=== PATIENT | male | born 1970 | race Caucasian/White ===

== ENCOUNTER 2018-06-28 07:56 | Emergency (ER) | payer SELFPAY ==
[2018-06-28] MEDS ORDERED: methylPREDNISolone Sod Succ/PF 125 MG/2 ML VIAL ONE ×2 (09:07→09:08)
== END 2018-06-28 09:30 | disposition home or self-care (01) ==
LOC: ERS 07:56
DX: L25.5 Unspecified contact dermatitis due to plants, except food (principal)
CPT/HCPCS: 96372; J2930

== ENCOUNTER 2018-11-19 09:26 | Inpatient (IN) | payer SELFPAY ==
[2018-11-19 10:01] LABS: #Basophils 0.1 thou/uL (0.0-0.2); #Eosinphils 0.1 thou/uL (0.0-0.7); #Lymphocytes 3.1 thou/uL (1.20-3.40); #Monocytes 0.8 thou/uL (0.11-0.59); %Basophils 1.1 % (0.0-1.0); %Eosinophils 0.7 % (0.0-10.0); %Monocytes 6.8 % (0.0-10.0); %Neutrophils 63.4 % (42.0-75.0); Hemoglobin 17.2 g/dL (14.0-18.0); Mean Corpuscular HGB CONC 34.7 g/dL (32.0-36.0); Mean Corpuscular Hemoglobin 32.3 pg (27.0-31.0); Mean Corpuscular Volume 93.2 fL (78.0-98.0); Mean Platelet Volume 8.9 fL (7.4-10.4); Platelet Count 152 thou/uL (130-400); Red Blood Cell (RBC) Count 5.32 mill/uL (4.70-6.10)
[2018-11-19] MEDS ORDERED: chlordiazePOXIDE HCl 25 MG CAP ONE (10:16)
--- NOTE | 2018-11-19 10:20 | RAD ---
AP CHEST: Date: 11/19/18 HISTORY: Abdominal pain. No comparison chest exam. FINDINGS: There is a pleural based nodular density in the peripheral left lung base measuring 7 mm. The density would suggest a calcified granuloma. Lung [place] are otherwise clear. Vascular markings normal. Heart size normal. No effusion. IMPRESSION: No acute lung process. Question calcified granuloma in the left lung base peripherally. POS: [facility]
[2018-11-19 10:22] LABS: ALT (SGPT) 165 U/L (8-55); AST (SGOT) 131 U/L (5-34); Albumin 4.4 g/dL (3.5-5.0); Alkaline Phosphatase 75 U/L (40-150); Anion Gap 20 mmol/L (10-20); BUN (Urea Nitrogen) 15 mg/dL (8.9-20.6); Bilirubin, Total 1.3 mg/dL (0.2-1.2); CK (CPK) 89 U/L (30-200); Calc. Creatinine Clearance 0 mL/min (70-130); Carbon Dioxide 25 mmol/L (22-29); Chloride 96 mmol/L (98-107); Estimated GFR-MDRD 90; Glucose 123 mg/dL (70-105); Lipase 190 U/L (8-78); Potassium 3.5 mmol/L (3.5-5.1); Protein, Total 7.4 g/dL (6.0-8.3); Sodium 137 mmol/L (136-145)
[2018-11-19 10:22] LABS: Acetaminophen Less than 6.0 mcg/mL (10.0-30.0); Alcohol 127 mg/dL (Less than 10); Salicylate Less than 8.0 mg/dL (15.0-30.0)
[2018-11-19] MEDS ORDERED: Ketorolac Tromethamine 30 MG/ML VIAL ONE (11:17)
[2018-11-19] MEDS ORDERED: Diazepam 5 MG TAB ONE (11:32)
[2018-11-19] MEDS ORDERED: Folic Acid 1 MG TAB ONE (11:33)
--- NOTE | 2018-11-19 11:54 | CT ---
CT OF THE ABDOMEN AND PELVIS WITH IV CONTRAST INDICATION: Right-sided flank and upper quadrant abdominal pain COMPARISON: None FINDINGS: ABDOMEN: Lung bases: Bibasilar atelectasis Liver: Diffuse fatty liver Gallbladder: Normal appearing. Pancreas: Mild peripancreatic inflammatory stranding but with normal enhancement Adrenal glands: Normal. Spleen: Normal. Kidneys: Normal. Retroperitoneum of the upper abdomen: There are mild vascular calcifications seen involving the visua lized vasculature. Pelvis: Small and large bowel: Normal Bladder: Normal. Rectal and perirectal soft tissues:Normal. Reproductive structures: Normal. Free fluid in pelvis: No free fluid is evident. Lymphadenopathy pelvis: No lymphadenopathy is evident. Osseous structures: Bilateral pars defects at L5 with grade 1 anterolisthesis. There is scattered de generative and osteoarthritic changes. IMPRESSION: 1. Noncomplicated pancreatitis 2. Prominent fatty liver
[2018-11-19] MEDS ORDERED: Multivit, Therapeutic 1 TAB PO SCH (12:00)
[2018-11-19] MEDS ORDERED: Thiamine HCl 200 MG/2 ML VIAL IM SCH (12:00)
[2018-11-19] MEDS ORDERED: ISOVUE-370 76%-LOCM 1 ML ONE (12:46)
[2018-11-19] MEDS ORDERED: Ketorolac Tromethamine 30 MG/ML VIAL IVP PRN (14:57)
[2018-11-19 15:30] VITALS: BMI 28.8
[2018-11-19] MEDS ORDERED: Ondansetron ODT 4 MG TAB PO PRN (15:54)
[2018-11-19] MEDS ORDERED: Sodium Chloride 0.9% 1,000 ML IV SCH (16:00)
[2018-11-19] MEDS: Morphine 2 MG/ML SYRINGE SLOW IVP PRN (16:07)
[2018-11-19] MEDS: Ondansetron PF 4 MG/2 ML Vial IVP PRN (17:01)
[2018-11-19] MEDS ORDERED: HYDROcodone/Acetaminophen 10/325 mg Tablet PO SCH (17:15)
[2018-11-19] MEDS ORDERED: Magnesium 2 GM/50 ML 2 GM in Premix Bag 1 BAG IVPB SCH (17:15)
[2018-11-19] MEDS: Lorazepam 2 MG/ML VIAL SLOW IVP PRN ×2 (17:36→23:11)
--- NOTE | 2018-11-19 19:06 | PDOC.HHP ---
Hospitalist HPI - History of Present Illness n/v and abdominal pain History of Present Illness: Mr. Vences is a 47 year old with a history of hypertension who is noncompliant with medications or physician follow-up who presents with complaints of N/V that started yesterday unable to tolerate any oral intake. He has a history of heavy alcohol use, drinking 1/2 gallon of whiskey a day until 2 days ago when he decided to quit. He has been dry heaving this morning and noted small amount of blood tinged emesis. Reports having black tarry stools for several days. Has not had any lightheadedness or dizziness. Never had a GI bleed in the past, never had an EGD. States he does not see doctors and previously treated all his ailments with alcohol. At this present time his main complaint is epigastric pain that is constant and sharp, 7/10 in severity and suddenly has waves of severe pain that is 10/10 lasting seconds. He states it feels like someone is "cutting me with a terrazzo worker apprentice knife". ED Course: Per patient he states the Toradol given in the ED helped to ease his pain and now has worn off. He had labs done which were notable for bili of 1.3, LFTs slightly elevated. He had an alcohol level of 127. Given Librium 50 mg PO in the ED. Also had a CT abdomen revealing noncomplicated pancreatitis. Hospitalist ROS - Review of Systems Constitutional: reports: chills, sweats (associated with alcohol withdrawal) Eyes: denies: pain, vision change, conjunctivae inflammation, eyelid inflammation, redness, other ENT: denies: ear pain, ear discharge, nose pain, nose discharge, nose congestion , mouth pain, mouth swelling, throat pain, throat swelling, other Respiratory: denies: cough, dry, shortness of breath, hemoptysis, SOB with excertion, pleuritic pain, sputum, wheezing, other Cardiovascular: reports: palpitations (reports an irregular heart beat but has never been seen for this) Gastrointestinal: reports: nausea, vomitting, abdominal pain, melena Genitourinary: reports: other (darkening in his urine). denies: dysuria, frequency, incontinence, hematuria, retention Musculoskeletal: denies: neck pain, shoulder pain, arm pain, back pain, hand pain, leg pain, foot pain, other Skin: denies: rash, lesions, khloe, bruising, other Neurological: denies: weakness, numbness, incoordination, change in speech, confusion, seizures, other - Medication Medications: Active Medications Generic Name Dose Route Start Last Admin Trade Name Freq PRN Reason Stop Dose Admin Hydrocodone Bitart/Acetaminophen 1 tab 11/19/18 17:15 11/19/18 17:35 [place] 10/325 PO 11/19/18 19:15 1 tab NOW ANNALISA Administration Sodium Chloride 1,000 mls @ 150 mls/hr 11/19/18 16:00 11/19/18 16:10 Normal Saline 0.9% IV Not Given .[id number] ANNALISA Magnesium Sulfate 2 gm/ Device 50 mls @ 50 mls/hr 11/19/18 17:15 11/19/18 18: 20 IVPB 11/19/18 19:15 50 mls NOW ANNALISA Administration Lorazepam 1 mg 11/19/18 17:10 11/19/18 17:36 Ativan SLOW IVP 1 mg Q4H PRN Administration Anxiety/Agitation Morphine Sulfate 2 mg 11/19/18 15:42 11/19/18 16:07 Morphine SLOW IVP 2 mg Q4H PRN Administration Severe Pain (7-10) Ondansetron HCl 4 mg 11/19/18 15:54 11/19/18 17:01 Zofran IVP 4 mg Q6H PRN Administration Nausea/Vomiting Hospitalist History - Past Medical History Cardiac: reports: HTN Gastrointestinal: reports: GERD Psych: reports: Addictions (Alcohol Abuse, quit 2 days ago. Was drinking 1/2 gallon of whiskey a day.) - Past Surgical History Past Surgical History: reports: no pertinent history - Family History Family History: reports: no pertinent history - Social History Smoking Status: Never smoker Alcohol: reports: Heavy Drugs: reports: none Living Situation: With Family - Exam General Appearance: NAD (Flushed appearance, in some discomfort) Eye: PERRL, anicteric sclera ENT: normocephalic atraumatic, no oropharyngeal lesions Neck: supple, symmetric Heart: RRR, no murmur, no gallops, no rubs Respiratory: CTAB, no wheezes, no rales, no ronchi, normal chest expansion Gastrointestinal: soft, non-tender, non-distended, normal bowel sounds Extremities: no cyanosis, no clubbing, no edema Skin: normal turgor, no lesions, no rashes Neurological: CN's grossly intact, normal sensation to touch, no weakness Musculoskeletal: normal tone, normal strength, no muscle wasting Psychiatric: normal affect (Patient appears anxious, no tremors) Hospitalist Results - Labs Result Diagrams: 11/19/18 09:52 11/19/18 09:52 Lab results: WBC 11.0 thou/uL (4.8-10.8) H 11/19/18 09:52 Hgb 17.2 g/dL (14.0-18.0) 11/19/18 09:52 Hct 49.6 % (42.0-52.0) 11/19/18 09:52 MCV 93.2 fL (78.0-98.0) 11/19/18 09:52 Plt Count 152 thou/uL (130-400) 11/19/18 09:52 Neutrophils % 63.4 % (42.0-75.0) 11/19/18 09:52 Sodium 137 mmol/L (136-145) 11/19/18 09:52 Potassium 3.5 mmol/L (3.5-5.1) 11/19/18 09:52 Chloride 96 mmol/L (98-107) L 11/19/18 09:52 Carbon Dioxide 25 mmol/L (22-29) 11/19/18 09:52 BUN 15 mg/dL (8.9-20.6) 11/19/18 09:52 Creatinine 0.90 mg/dL (0.7-1.3) 11/19/18 09:52 Glucose 123 mg/dL (70-105) H 11/19/18 09:52 Calcium 11.0 mg/dL (7.8-10.44) H 11/19/18 09:52 Total Bilirubin 1.3 mg/dL (0.2-1.2) H 11/19/18 09:52 AST 131 U/L (5-34) H 11/19/18 09:52 ALT 165 U/L (8-55) H 11/19/18 09:52 Alkaline Phosphatase 75 U/L (40-150) 11/19/18 09:52 Creatine Kinase 89 U/L (30-200) 11/19/18 09:52 Troponin I Less than 0.010 ng/mL (< 0.028) 11/19/18 09:52 Serum Total Protein 7.4 g/dL (6.0-8.3) 11/19/18 09:52 Albumin 4.4 g/dL (3.5-5.0) 11/19/18 09:52 Lipase 190 U/L (8-78) H 11/19/18 09:52 Hospitalist H&P A/P - Problem (1) Pancreatitis Code(s): K85.90 - ACUTE PANCREATITIS WITHOUT NECROSIS OR INFECTION, UNSP Status: Acute Assessment and Plan: NPO and IVF, will give 100 cc/hr. BNP added on, no evidence of HF on cxr, but could have underlying alcohol induced cardiomyopathy. If normal, increase fluids to 150 cc/hr. (2) Epigastric pain Code(s): R10.13 - EPIGASTRIC PAIN Status: Acute Assessment and Plan: Given complaints of melena and blood tinged emesis, will hold toradol and give Morphine. (3) Melena Code(s): K92.1 - MELENA Status: Acute Assessment and Plan: Consultation placed to GI. Discussed with Dr. Figueroa and he agrees with Protonix 40 mg IV BID. No need for octreotide. Feels given normal hgb, likely has a carl villareal tear , rather than varices. (4) Heavy alcohol consumption Code(s): Z78.9 - OTHER SPECIFIED HEALTH STATUS Status: Acute Assessment and Plan: ASE protocol. Ativan PRN. Given 10 mg Diazepam PO in ED as well as Librium. Continue Librium 50 mg PO every 6 hours as needed. (5) History of uncontrolled hypertension Code(s): Z86.79 - PERSONAL HISTORY OF OTHER DISEASES OF THE CIRCULATORY SYSTEM Status: Acute Assessment and Plan: Monitor BP. Start Amlodipine 5 mg PO daily. (6) Palpitations Code(s): R00.2 - PALPITATIONS Status: Acute Assessment and Plan: Telemetry monitoring. Would benefit from Echo, unclear if needed as inpatient at this point. - Plan Plan: Addendum: Mg+ checked and low at 1.1, replacement ordered. Will recheck after and give further replacement. Discussed with Dr. Schroeder who agrees with plan as above.
[2018-11-19 19:37] LABS: Anion Gap 14 mmol/L (10-20); BUN (Urea Nitrogen) 17 mg/dL (8.9-20.6); Calc. Creatinine Clearance 140 mL/min (70-130); Calcium 9.6 mg/dL (7.8-10.44); Carbon Dioxide 27 mmol/L (22-29); Chloride 98 mmol/L (98-107); Estimated GFR-MDRD Greater than 90; Glucose 134 mg/dL (70-105); Potassium 3.3 mmol/L (3.5-5.1); Sodium 136 mmol/L (136-145)
[2018-11-19] MEDS: chlordiazePOXIDE HCl 25 MG CAP PO SCH (19:37)
[2018-11-19] MEDS: HYDROcodone/Acetaminophen 7.5/325 mg Tablet PO SCH (21:42)
[2018-11-19] MEDS: Sodium Chloride 0.9% 1,000 ML IV SCH (21:45)
[2018-11-19] MEDS: Pantoprazole 40 MG VIAL IVP SCH (21:45)
[2018-11-19] MEDS ORDERED: Potassium Chloride 10 MEQ in Premix Bag 1 BAG IVPB SCH (22:00)
[2018-11-20] MEDS: chlordiazePOXIDE HCl 25 MG CAP PO SCH ×5 (00:27→23:42)
--- NOTE | 2018-11-20 01:12 | CON ---
DATE OF CONSULTATION: 11/19/2018 REASON FOR CONSULTATION: Hematemesis. HISTORY OF PRESENT ILLNESS: The patient is a 47-year-old male with past medical history of hypertension, GERD, and alcohol dependence, presenting with complaints of abdominal pain and hematemesis. He states that he was in his usual state of health until yesterday when he began to experience increased hand and leg tremor, they were associated with increased diaphoresis as well as multiple bouts of nausea and vomiting of nonbloody emesis and dry heaves. With increased shakes, he sought to improve his clinical status by drinking approximately a 5th of vodka which did help with his tremors and shakes in addition to his nausea, vomiting, but later on that morning, he had acute onset of midepigastric abdominal pain characterized as a sharp/stabbing type sensation, would radiate to the right upper quadrant and left upper quadrant, was constant, reached a severity of 10/10. This pain was worse with eating or drinking any food stuffs, increased physical activity/movement with no clear alleviating factors. This was also associated with continued nausea and vomiting. However, during the course of his vomiting episodes, he did notice blood-tinged emesis rather than any grossly bloody episodes of hematemesis. With the increased nausea, vomiting, abdominal pain, it prompted him to seek healthcare assistance at [facility], where he was noted to have a fairly elevated lipase in addition to imaging consistent with acute uncomplicated pancreatitis. Currently, he states that he continues to have the abdominal pain, but has had improvement in his nausea and vomiting. He otherwise denies any overt or grossly bloody hematemesis, melena, or hematochezia. REVIEW OF SYSTEMS: A 10-category review of systems was obtained with all responses negative except for the pertinent positives as listed in HPI. PAST MEDICAL HISTORY: As per HPI. PAST SURGICAL HISTORY: None. FAMILY HISTORY: Denies any GI malignancies. SOCIAL HISTORY: Denies any tobacco or illicit drug use. However, he has been drinking a 5th of vodka plus mixed drinks for many years with the patient waking up and fixing himself a drink prior to his making breakfast. OUTPATIENT MEDICATIONS: None. ALLERGIES: NO KNOWN DRUG ALLERGIES. PHYSICAL EXAMINATION: VITAL SIGNS: Temperature 97.1, pulse 95, blood pressure 143/94, respiratory rate 20, saturating 93% on room air. GENERAL: The patient was lying in bed, in only mild distress. Alert and oriented x4. HEENT: Normocephalic, atraumatic. Neck, supple. No JVD or scleral icterus noted. CARDIOVASCULAR: Tachycardic rate, but regular rhythm. No discernible murmurs, gallops, or rubs. RESPIRATORY: Clear to auscultation bilaterally with no discernible wheezes or rales. ABDOMEN: Hypoactive bowel sounds. Soft, nondistended. Tenderness to palpation in the right upper quadrant, midepigastric, and left upper quadrant. EXTREMITIES: No cyanosis, clubbing, or edema. LABORATORY DATA: CBC with a white blood cell count of 11, hemoglobin 17.2, hematocrit 49.6, platelets 152. Chemistry with a sodium of 137, potassium 3.5, chloride 96, CO2 of 25, BUN 15, creatinine 0.9, glucose 123. AST 131, ALT 165, alkaline phosphatase 75, total bilirubin 1.3, albumin 4.4, magnesium 1.1, calcium 11, lipase 190. Alcohol level positive at 127. IMAGING DATA: CT of the abdomen and pelvis was obtained on November 19, 2018, which showed diffusely fatty liver in addition to mild peripancreatic inflammatory stranding, but normal enhancement. There was no evidence of free fluid or lymphadenopathy. ASSESSMENT AND PLAN: The patient is a 47-year-old male with a past medical history of hypertension, gastroesophageal reflux disease, and alcohol dependence, presenting with acute uncomplicated pancreatitis and blood-tinged emesis. Hematemesis: The patient had the acute onset of nausea and vomiting in association with alcohol withdrawal and acute uncomplicated pancreatitis where the patient was vomiting for extended periods of time prior to the appearance of blood-tinged emesis. He denies any episodes of any grossly bloody hematemesis nor has he had any melena or hematochezia. At this time, the most likely reason for his blood-tinged hematemesis would be either esophagitis or possible [place] tear. However, the differential could include gastritis, peptic ulcer disease, variceal bleeding (much less likely given lack of evidence of cirrhosis) and/or gastrointestinal neoplasm. RECOMMENDATIONS: 1. We would continue to trend H and H and transfuse as necessary to maintain an H and H of 7/21. 2. Continue to monitor clinically for signs of active GI bleeding. 3. We would keep the patient n.p.o. tonight in anticipation of EGD tomorrow. 4. We will plan for EGD in the morning with intraluminal evaluation of the upper GI tract. 5. We would avoid any NSAIDs during this hospitalization. Pancreatitis: The patient is presenting with a longstanding history of alcohol dependence and was legally drunk on admission per serologies. With the appearance of what appears to be withdrawal symptoms and tremors, the patient did binge drink approximately 1/5 of vodka, which may have contributed to the onset of midepigastric abdominal pain and with serologies and imaging consistent with acute uncomplicated pancreatitis. At this time, the patient is stable without any evidence of end-organ dysfunction related to his pancreatitis, but his pain is only moderately well controlled based on the current regimen. RECOMMENDATIONS: 1. We would change the patient's pain regimen to include a basal narcotic release in addition to p.r.n. use of morphine. 2. We would continue n.p.o. status given pancreatitis. 3. We would continue IV fluids, but increase to 200 mL/h given that the patient has normal renal function. We would continue to track his chemistries with special attention to BUN, which would indicate response to treatment for pancreatitis. 4. There is no need to trend his lipase as it does not portend worsening or improving of his pancreatitis. We will continue to follow. Please call with any questions. Job ID: [id number]
[2018-11-20] MEDS: Sodium Chloride 0.9% 1,000 ML IV SCH ×5 (03:00→21:44)
[2018-11-20] MEDS: Morphine 2 MG/ML SYRINGE SLOW IVP PRN ×4 (03:34→19:50)
[2018-11-20 05:44] LABS: ALT (SGPT) 97 U/L (8-55); AST (SGOT) 61 U/L (5-34); Albumin 3.5 g/dL (3.5-5.0); Alkaline Phosphatase 62 U/L (40-150); Anion Gap 11 mmol/L (10-20); BUN (Urea Nitrogen) 16 mg/dL (8.9-20.6); Bilirubin, Total 1.7 mg/dL (0.2-1.2); Calc. Creatinine Clearance 159 mL/min (70-130); Calcium 8.8 mg/dL (7.8-10.44); Carbon Dioxide 30 mmol/L (22-29); Chloride 99 mmol/L (98-107); Estimated GFR-MDRD Greater than 90; Globulin 2.7 g/dL (2.4-3.5); Glucose 93 mg/dL (70-105); Potassium 3.6 mmol/L (3.5-5.1); Protein, Total 6.2 g/dL (6.0-8.3); Sodium 136 mmol/L (136-145)
[2018-11-20 05:52] LABS: #Eosinphils 0.2 thou/uL (0.0-0.7); #Lymphocytes 1.4 thou/uL (1.20-3.40); #Monocytes 0.4 thou/uL (0.11-0.59); #Neutrophils 4.6 thou/uL (1.40-6.50); %Basophils 0.6 % (0.0-1.0); %Eosinophils 2.7 % (0.0-10.0); %Lymphocytes 20.4 % (21.0-51.0); %Monocytes 6.5 % (0.0-10.0); %Neutrophils 69.8 % (42.0-75.0); Hemoglobin 15.6 g/dL (14.0-18.0); Mean Corpuscular HGB CONC 34.8 g/dL (32.0-36.0); Mean Corpuscular Hemoglobin 32.7 pg (27.0-31.0); Mean Platelet Volume 9.5 fL (7.4-10.4); Platelet Count 96 thou/uL (130-400); Platelet Morphology Comment Appears Decreased; Red Blood Cell (RBC) Count 4.77 mill/uL (4.70-6.10); White Blood Cell (WBC) Count 6.6 thou/uL (4.8-10.8)
[2018-11-20] MEDS: HYDROcodone/Acetaminophen 7.5/325 mg Tablet PO SCH ×3 (06:00→21:42)
[2018-11-20] MEDS: Pantoprazole 40 MG VIAL IVP SCH ×2 (08:35→19:55)
[2018-11-20] MEDS ORDERED: PROPOFOL 200 MG/20 ML VIAL ONE (08:45)
[2018-11-20] MEDS ORDERED: Lidocaine 1% PF 5 ML VIAL ONE (08:45)
[2018-11-20] MEDS ORDERED: Fentanyl 100 MCG/2 ML VIAL ONE (12:30)
--- NOTE | 2018-11-20 14:43 | PRG ---
DATE OF SERVICE: 11/20/2018 SUBJECTIVE: The patient is seen and examined at the bedside. He just came back from his EGD, done by Dr. Figueroa. He still complains about abdominal pain. OBJECTIVE: VITAL SIGNS: Blood pressure is 161/100, pulse is 90, temperature is 98.2, respirations 16, O2 saturation is 93% on room air. HEENT: His head is atraumatic and normocephalic. Eyes are PERRLA. Sclerae are nonicteric. Conjunctivae, pinkish. Oral mucosa is somewhat dry. NECK: Supple. LUNGS: Clear. HEART: S1 and S2 normal. No S3. No S4. ABDOMEN: Somewhat distended. Tender to palpation, especially in the midpart of the abdomen and epigastric area. There is some guarding. Bowel sounds sluggish. EXTREMITIES: No clubbing, cyanosis, or edema. NEUROLOGICAL: He follows my commands. He moves his all 4 extremities. There are no any motor or sensory deficits. LABORATORY DATA: White count of 6.6, hemoglobin 15.6, hematocrit 44.8, platelet count is 96,000. Sodium of 136, potassium 3.6, chloride 99, CO2 of 30, BUN 16, creatinine 0.77, glucose 93, calcium 8.8. Total bilirubin 1.7, AST 61, ALT 97, alkaline phosphatase 62, lipase 881. IMPRESSION: 1. Acute pancreatitis secondary to alcohol intake. 2. Melena, status post EGD, which showed some irritation of the upper part of the stomach, which could be related to his vomiting. 3. Uncontrolled hypertension. 4. Alcoholism. 5. Thrombocytopenia. PLAN: We are going to continue his PPI 40 mg of Protonix IV push every 12 hours. We will continue IV fluids at 200 mL/h. We will use p.r.n. morphine and hydrocodone for the abdominal pain control. Also we will continue Librium 50 mg q.6 hours as scheduled and lorazepam (Ativan) p.r.n. 1 mg slow IV push every 4 hours p.r.n. as needed. The patient's alcohol level was at 127 yesterday, so he is trying to recover from his alcohol intoxication. We will continue close followup with him, and we will recheck his numbers blood work tomorrow morning. Job ID: [id number]
--- NOTE | 2018-11-20 20:12 | OP ---
DATE OF PROCEDURE: 11/20/2018 PROCEDURE PERFORMED: Esophagogastroduodenoscopy (diagnostic). INDICATIONS FOR PROCEDURE: Hematemesis, midepigastric abdominal pain. DESCRIPTION OF PROCEDURE: After the risks and benefits of the procedure were explained to the patient including risks of bleeding, infection, perforation, reactions to anesthesia, aspiration, and/or pain, informed consent was obtained. The patient was then taken to the endoscopy suite, where deep sedation was administered via propofol and anesthesia support. Once adequate sedation was achieved, the standard gastroscope was introduced into the mouth with intubation of the esophagus, stomach, and the proximal small intestines with the findings listed below. The patient tolerated the procedure well, but did exhibit some oxygen desaturation during the procedure that required the placement of a nasal trumpet, that he responded well with. Upon completion of the procedure, all equipment was removed from the patient, and he was transferred to PACU in satisfactory condition. FINDINGS: Esophagus: Normal-appearing mucosa was seen in the proximal and mid esophagus; however, one tongue of salmon-colored mucosa was seen extending proximally from the GE junction around 2 cm in length. It could not be adequately visualized due to the patient's oxygen desaturation. Views of the distal esophagus did not reveal any esophageal varices. There was no evidence of erosions, ulcerations, mass lesions, or active/recent bleeding. Stomach: Mild mucosal erythema in a mosaic-type pattern was seen in the proximal stomach including the cardia and the fundus with areas of mild submucosal hemorrhage seen within the fundus consistent with recent retching. Otherwise, normal-appearing mucosa was seen in the distal gastric body, greater curvature, antrum, and incisura. There was no evidence of erosions, ulcerations, mass lesions, or active/recent bleeding. Duodenum: Normal-appearing mucosa was seen in both the duodenal bulb and second portion of the duodenum. There was no evidence of erosions, ulcerations, mass lesions, or active/recent bleeding. IMPRESSION: 1. [place]-colored mucosa in the distal esophagus concerning for [place] esophagus, but not biopsied due to oxygen desaturation during this exam. 2. Mild nonspecific gastropathy consistent with recent vomiting. 3. No etiology for the patient's hematemesis was seen during this examination. RECOMMENDATIONS: 1. We would continue to trend his H and H and transfuse as necessary to maintain an H and H of 7/21. 2. Continue to monitor clinically for signs of active GI bleeding. 3. Pain control per primary team. 4. We will continue n.p.o. status given continued pain today with probable starting of a clear liquid diet tomorrow. 5. We would continue IV fluids at roughly 100 mL/hour. 6. We will continue with aggressive antiemetics as this is the most likely reason for his recent blood tinged emesis. We will continue to follow. Please call with any questions. Job ID: [id number]
[2018-11-21] MEDS: Morphine 2 MG/ML SYRINGE SLOW IVP PRN ×2 (02:32→20:02)
[2018-11-21] MEDS: Sodium Chloride 0.9% 1,000 ML IV SCH ×6 (02:36→21:10)
[2018-11-21] MEDS: chlordiazePOXIDE HCl 25 MG CAP PO SCH ×4 (05:50→23:38)
[2018-11-21] MEDS: HYDROcodone/Acetaminophen 7.5/325 mg Tablet PO SCH ×3 (05:50→21:09)
[2018-11-21 09:07] LABS: #Eosinphils 0.3 thou/uL (0.0-0.7); #Lymphocytes 1.7 thou/uL (1.20-3.40); #Monocytes 0.5 thou/uL (0.11-0.59); #Neutrophils 3.4 thou/uL (1.40-6.50); %Basophils 0.3 % (0.0-1.0); %Eosinophils 5.3 % (0.0-10.0); %Lymphocytes 28.9 % (21.0-51.0); %Monocytes 7.9 % (0.0-10.0); %Neutrophils 57.6 % (42.0-75.0); Hemoglobin 14.4 g/dL (14.0-18.0); Mean Corpuscular HGB CONC 34.1 g/dL (32.0-36.0); Mean Corpuscular Hemoglobin 32.4 pg (27.0-31.0); Mean Platelet Volume 9.4 fL (7.4-10.4); Platelet Count 93 thou/uL (130-400); RBC Distribution Width 11.8 % (11.5-14.5); Red Blood Cell (RBC) Count 4.44 mill/uL (4.70-6.10)
[2018-11-21 09:22] LABS: ALT (SGPT) 82 U/L (8-55); AST (SGOT) 66 U/L (5-34); Albumin 3.3 g/dL (3.5-5.0); Alkaline Phosphatase 65 U/L (40-150); Anion Gap 11 mmol/L (10-20); BUN (Urea Nitrogen) 7 mg/dL (8.9-20.6); Bilirubin, Total 1.8 mg/dL (0.2-1.2); Calc. Creatinine Clearance 178 mL/min (70-130); Calcium 8.1 mg/dL (7.8-10.44); Carbon Dioxide 24 mmol/L (22-29); Chloride 104 mmol/L (98-107); Estimated GFR-MDRD Greater than 90; Globulin 2.5 g/dL (2.4-3.5); Glucose 103 mg/dL (70-105); Potassium 3.2 mmol/L (3.5-5.1); Protein, Total 5.8 g/dL (6.0-8.3); Sodium 136 mmol/L (136-145)
[2018-11-21] MEDS: Pantoprazole 40 MG VIAL IVP SCH ×2 (09:22→20:02)
--- NOTE | 2018-11-21 13:20 | PDOC.HOSPP ---
- Subjective Encounter Date: 11/21/18 Encounter Time: 13:19 Subjective: abd pain better, wants to eat something. Tremors as Librium wears off, better with Librium now. - Objective Vital Signs & Weight: Vital Signs (12 hours) Temp Pulse Resp BP BP BP Pulse Ox 11/21/18 12:23 168/99 H 11/21/18 12:22 97.9 F 84 16 168/99 H 95 11/21/18 07:59 98.0 F 86 16 152/93 H 152/93 H 95 11/21/18 04:00 98.1 F 99 20 131/80 131/80 92 L Weight Weight 220 lb 3.2 oz I&O: 11/20/18 11/21/18 11/22/18 06:59 06:59 06:59 Intake Total 2250 3360 Output Total 500 2425 Balance 1750 935 Result Diagrams: 11/21/18 08:26 11/21/18 08:26 Additional Labs: Accuchecks 11/20/18 20:38 POC Glucose 99 Hospitalist ROS - Medication Medications: Active Medications Generic Name Dose Route Start Last Admin Trade Name Freq PRN Reason Stop Dose Admin Hydrocodone Bitart/Acetaminophen 1 tab 11/19/18 22:00 11/21/18 05:50 [place] 7.5/325 PO 1 tab Q8HR ANNALISA Administration Chlordiazepoxide HCl 50 mg 11/19/18 18:00 11/21/18 12:25 Librium PO 50 mg Q6HR ANNALISA Administration Sodium Chloride 1,000 mls @ 200 mls/hr 11/19/18 20:56 11/21/18 09:21 Normal Saline 0.9% IV 1,000 mls .Q5H ANNALISA Administration Lorazepam 1 mg 11/19/18 17:10 11/19/18 23:11 Ativan SLOW IVP 1 mg Q4H PRN Administration Anxiety/Agitation Morphine Sulfate 2 mg 11/19/18 15:42 11/21/18 02:32 Morphine SLOW IVP 2 mg Q4H PRN Administration Severe Pain (7-10) Ondansetron HCl 4 mg 11/19/18 15:54 11/19/18 17:01 Zofran IVP 4 mg Q6H PRN Administration Nausea/Vomiting Pantoprazole Sodium 40 mg 11/19/18 21:00 11/21/18 09:22 Protonix IVP 40 mg Q12HR ANNALISA Administration - Exam General Appearance: ill appearing Eye: PERRL, anicteric sclera ENT: normocephalic atraumatic, no oropharyngeal lesions Neck: supple, symmetric, no JVD, no thyromegaly Heart: RRR, no murmur, no gallops, no rubs, normal peripheral pulses Respiratory: CTAB, no wheezes, no rales, no ronchi, normal chest expansion Gastrointestinal: soft, non-distended, normal bowel sounds, no palpable masses, tender to palpation Hosp A/P (1) Pancreatitis Code(s): K85.90 - ACUTE PANCREATITIS WITHOUT NECROSIS OR INFECTION, UNSP Status: Acute Qualifiers: Chronicity: acute Pancreatitis type: alcohol induced Plan: IV fluids, pain control, start on clears as tolerated (2) Heavy alcohol consumption Code(s): Z78.9 - OTHER SPECIFIED HEALTH STATUS Status: Acute Plan: continue librium scheduled and ativan prn (3) Epigastric pain Code(s): R10.13 - EPIGASTRIC PAIN Status: Acute (4) Melena Code(s): K92.1 - MELENA Status: Acute Plan: Hb continues to trans down, EGD showing gastropathy, possible reason for melena , continue Protonix (5) History of uncontrolled hypertension Code(s): Z86.79 - PERSONAL HISTORY OF OTHER DISEASES OF THE CIRCULATORY SYSTEM Status: Acute
--- NOTE | 2018-11-21 21:48 | PRG ---
DATE OF SERVICE: 11/21/2018 REASON FOR CONSULTATION: Hematemesis, pancreatitis. SUBJECTIVE: The patient states that he is feeling better today with significantly decreased pain when compared to on admission. He states that he continues to have the midepigastric abdominal pain, but is now at 4/10. He further denies any nausea, vomiting, fevers, chills, hematemesis, melena, or hematochezia. OBJECTIVE: VITAL SIGNS: Temperature 98.6, pulse 78, blood pressure 161/95, respiratory rate 16, saturating 97% on room air. GENERAL: The patient is lying in bed, in no acute distress. Alert and oriented x4. CARDIOVASCULAR: Regular rate and rhythm. RESPIRATORY: Clear to auscultation bilaterally. ABDOMEN: Normoactive bowel sounds. Soft, nondistended. Tenderness to palpation in the midepigastric region. EXTREMITIES: No cyanosis, clubbing, or edema. LABORATORY DATA: CBC with a white blood cell count of 6, hemoglobin 14.4, hematocrit 42.1, platelets 93. Chemistry with a sodium 136, potassium 3.2, chloride 104, CO2 of 24, BUN 7, creatinine 0.71, glucose 103. AST 66, ALT 82, alkaline phosphatase 65, total bilirubin 1.8. IMAGING DATA: No current GI imaging is available for review. Upper endoscopy performed on November 20, 2018, showed mild mucosal erythema within the proximal stomach with mild submucosal hemorrhage consistent with recent vomiting and is most likely the source of his hematemesis. ASSESSMENT AND PLAN: The patient is a 47-year-old male with past medical history of hypertension, gastroesophageal reflux disease, and alcohol dependence, presenting with acute uncomplicated pancreatitis and blood-tinged emesis. 1. Hematemesis. The patient presented to the hospital with recent bouts of increased nausea and vomiting with blood-tinged emesis. He subsequently underwent upper endoscopy on November 20, 2018, which showed mild submucosal hemorrhage within the proximal stomach consistent with the repeated episodes of retching. At this point, this is the more likely reason for his blood-tinged emesis and with good control of his nausea and vomiting, thus far, he has not had any further episodes. 2. Recommendations are. a. Would continue anti-aggressive antiemetic support as needed. b. Continue to monitor clinically for signs of active GI bleeding. c. Would avoid any nonsteroidal anti-inflammatory drugs during this hospitalization. 3. Pancreatitis. a. The patient is presenting with acute onset of midepigastric abdominal pain, and when coupled with a history of alcohol dependence, it is consistent with pancreatitis. Imaging and serologies also complemented the diagnosis of acute uncomplicated pancreatitis with IV fluid administration and n.p.o. status. The patient has had significant improvement in his abdominal pain and has been able to tolerate a clear liquid diet thus far today. RECOMMENDATIONS: 1. Would continue current pain regimen. 2. We will advance the diet to full liquid diet, and if able to tolerate, may advance to low-fat diet in anticipation of discharge. 3. Would decrease the IV fluids to 125 mL/h given his ability to tolerate oral intake and response to treatment with decreased BUN. 4. We will continue to follow. Please call with any questions. Job ID: [id number]
[2018-11-22] MEDS: Morphine 2 MG/ML SYRINGE SLOW IVP PRN ×2 (01:33→09:28)
[2018-11-22] MEDS: HYDROcodone/Acetaminophen 7.5/325 mg Tablet PO SCH ×3 (05:37→20:55)
[2018-11-22] MEDS: chlordiazePOXIDE HCl 25 MG CAP PO SCH ×4 (05:38→20:55)
[2018-11-22] MEDS: Sodium Chloride 0.9% 1,000 ML IV SCH ×2 (05:39→16:05)
[2018-11-22] MEDS: Pantoprazole 40 MG VIAL IVP SCH ×2 (09:21→20:56)
[2018-11-22] MEDS: Ondansetron PF 4 MG/2 ML Vial IVP PRN (09:28)
--- NOTE | 2018-11-22 14:39 | PDOC.HOSPP ---
- Subjective Encounter Date: 11/22/18 Encounter Time: 14:37 Subjective: abd pain better tolerating clears, requesting to advance diet. Continued tremors when Librium wears off - Objective Vital Signs & Weight: Vital Signs (12 hours) Temp Pulse Resp BP BP BP Pulse Ox 11/22/18 12:00 97.5 F L 84 16 150/87 H 97 11/22/18 09:30 87 16 136/82 11/22/18 08:19 98 F 78 18 168/109 H 95 11/22/18 08:00 136/82 11/22/18 05:35 82 147/95 H 11/22/18 03:40 173/96 H 11/22/18 03:35 98.1 F 76 18 173/96 H 93 L Weight Weight 218 lb I&O: 11/21/18 11/22/18 11/23/18 06:59 06:59 06:59 Intake Total 3360 6040 180 Output Total 2425 3600 Balance 935 2440 180 Result Diagrams: 11/21/18 08:26 11/21/18 08:26 Additional Labs: Accuchecks 11/21/18 05:34 POC Glucose 118 H Hospitalist ROS - Medication Medications: Active Medications Generic Name Dose Route Start Last Admin Trade Name Freq PRN Reason Stop Dose Admin Hydrocodone Bitart/Acetaminophen 1 tab 11/19/18 22:00 11/22/18 05:37 [place] 7.5/325 PO 1 tab Q8HR ANNALISA Administration Chlordiazepoxide HCl 50 mg 11/19/18 18:00 11/22/18 12:10 Librium PO 50 mg Q6HR ANNALISA Administration Sodium Chloride 1,000 mls @ 125 mls/hr 11/21/18 20:42 11/22/18 05:39 Normal Saline 0.9% IV 1,000 mls .Q8H ANNALISA Administration Lorazepam 1 mg 11/19/18 17:10 11/19/18 23:11 Ativan SLOW IVP 1 mg Q4H PRN Administration Anxiety/Agitation Morphine Sulfate 2 mg 11/19/18 15:42 11/22/18 09:28 Morphine SLOW IVP 2 mg Q4H PRN Administration Severe Pain (7-10) Ondansetron HCl 4 mg 11/19/18 15:54 11/22/18 09:28 Zofran IVP 4 mg Q6H PRN Administration Nausea/Vomiting Pantoprazole Sodium 40 mg 11/19/18 21:00 11/22/18 09:21 Protonix IVP 40 mg Q12HR ANNALISA Administration - Exam General Appearance: awake alert, ill appearing Eye: PERRL, anicteric sclera ENT: normocephalic atraumatic, no oropharyngeal lesions, moist mucosa Neck: supple, symmetric, no JVD, no thyromegaly Heart: RRR, no murmur, no gallops, no rubs Respiratory: CTAB, no wheezes, no rales, no ronchi Gastrointestinal: soft, normal bowel sounds, no palpable masses, tender to palpation Extremities: no cyanosis, no clubbing, no edema Skin: normal turgor, no lesions, no rashes Musculoskeletal: normal tone, normal strength, no muscle wasting Psychiatric: normal affect, normal behavior, A&O x 3, oriented to person Hosp A/P (1) Pancreatitis Code(s): K85.90 - ACUTE PANCREATITIS WITHOUT NECROSIS OR INFECTION, UNSP Status: Acute Qualifiers: Chronicity: acute Pancreatitis type: alcohol induced (2) Heavy alcohol consumption Code(s): Z78.9 - OTHER SPECIFIED HEALTH STATUS Status: Acute (3) Epigastric pain Code(s): R10.13 - EPIGASTRIC PAIN Status: Acute (4) Melena Code(s): K92.1 - MELENA Status: Acute (5) History of uncontrolled hypertension Code(s): Z86.79 - PERSONAL HISTORY OF OTHER DISEASES OF THE CIRCULATORY SYSTEM Status: Acute - Plan DVT proph w/SCDs, GI proph Admitted for acute pancreatitis and abd pain, melena, severe alcoholism History of severe alcoholism Patient was NPO for a while now his diet is getting slowly advanced pain control Librium for alcohol withdrawal EGD showing gastropathy and Barretts esophagus Continue IV protonix Hb stable, continue to trend it
[2018-11-23] MEDS: chlordiazePOXIDE HCl 25 MG CAP PO SCH ×3 (01:09→12:57)
[2018-11-23] MEDS: HYDROcodone/Acetaminophen 7.5/325 mg Tablet PO SCH ×2 (05:43→12:57)
[2018-11-23 07:33] VITALS: BP 134/96; TEMP 97.7
--- NOTE | 2018-11-23 07:37 | PRG ---
DATE OF SERVICE: 11/22/2018 REASON FOR CONSULTATION: Hematemesis, pancreatitis. SUBJECTIVE: The patient states that despite advancing his diet, his abdominal pain remains at a minimum with the current severity of approximately 4/10. He denies any nausea, vomiting, fevers, chills, hematemesis, melena, or hematochezia. OBJECTIVE: VITAL SIGNS: Temperature 97.8, pulse 72, blood pressure 177/106, respiratory rate 16, saturating 96% on room air. GENERAL: The patient was lying in bed, in no acute distress. Alert and oriented x4. CARDIOVASCULAR: Regular rate and rhythm. RESPIRATORY: Clear to auscultation bilaterally. ABDOMEN: Normoactive bowel sounds. Soft, nondistended. Mild tenderness to palpation in the midepigastric region. EXTREMITIES: No cyanosis, clubbing, or edema. LABORATORY DATA: No current studies are available for review. IMAGING DATA: No current GI imaging is available for review. ASSESSMENT AND PLAN: The patient is a 48-year-old male with past medical history of hypertension, gastroesophageal reflux disease, and alcohol dependence, presenting with acute uncomplicated pancreatitis and blood-tinged emesis. 1. Hematemesis. The patient presented to the hospital with increased bouts of nausea, vomiting with resultant blood-tinged emesis after repeated episodes of vomiting. He subsequently underwent endoscopy on November 20, 2018, which showed mild submucosal hemorrhage within the proximal stomach, consistent with repeated episodes of retching. Since that time, he has not had any further episodes of nausea, vomiting, or hematemesis. Recommendations: a. Would continue antiemetic support as needed. b. Continue to monitor clinically for signs of active GI bleeding. c. Would avoid any NSAIDs during this hospitalization. 2. Pancreatitis. The patient is presenting with acute onset of midepigastric abdominal pain with serologies and imaging consistent with pancreatitis. Based on his imaging, I would consider this acute uncomplicated pancreatitis and has been fairly responsive to IV fluid administration and pain control with significant improvement of his pain over the last 24 to 48 hours despite advancing his diet to a full liquid diet. Recommendations: a. Continue current pain regimen. b. Would advance the patient's diet to a low-fat diet in the morning. If he is able to tolerate this without any significant change in his abdominal pain, he can most likely be discharged tomorrow. We will continue to follow. Please call with any questions. Job ID: [id number]
[2018-11-23] MEDS: Pantoprazole 40 MG VIAL IVP SCH ×2 (09:37→10:35)
--- NOTE | 2018-11-24 05:36 | DIS ---
DATE OF ADMISSION: 11/19/2018 DATE OF DISCHARGE: 11/23/2018 ADMISSION DIAGNOSES: 1. Acute pancreatitis. 2. Severe alcohol abuse. 3. Abdominal pain. 4. Gastrointestinal bleed. DISCHARGE DIAGNOSES: 1. Acute pancreatitis. 2. Severe alcohol abuse. 3. Gastrointestinal bleed. 4. Gastric irritation/gastropathy. 5. Alcohol withdrawal symptoms. HISTORY OF PRESENTING ILLNESS: This is a 48-year-old male with severe alcohol abuse, came in with symptoms of severe abdominal pain, epigastric pain, GI bleed, nausea and vomiting, tremors, and anxiety. On evaluation, it was seen his lipase was elevated with mildly elevated LFTs. CT scan showed acute pancreatitis with no complications. CT also showed hepatomegaly. The patient was then admitted for IV fluids, was kept n.p.o. He was also started on Librium p.o. t.i.d. scheduled to address alcohol withdrawal along with Ativan p.r.n. as required. The patient did well with IV fluids and pain control and slowly his diet was introduced and advanced as tolerated. The patient did well with p.o. and was then discharged with Ativan p.r.n. to address the alcohol withdrawal symptoms if any. The patient here in the hospital received scheduled Librium for five full days. Prior to discharge, the patient was repeatedly counseled to completely stop alcohol. The patient do understand. DISCHARGE INSTRUCTION: 1. Please stop alcohol completely. 2. Follow up with the primary care physician. 3. Keep the diet light. Avoid any fatty food or fried food for the next one week. 4. Healthy diet. 5. Exercise. Job ID: [id number]
== END 2018-11-23 14:58 | disposition left against medical advice (07) | DRG 439 ==
LOC: ERS 09:26 → T4-A 14:48 → EEVIPCON 14:48 → 2NO 18:09
PROVIDERS: ADMIT Internal Medicine; ATTEND Internal Medicine
PROC: 0DJ08ZZ Inspection of Upper Intestinal Tract, Via Natural or Artificial Opening Endoscopic (ICD-10-PCS; principal; 2018-11-20)
DX: K85.20 Alcohol induced acute pancreatitis without necrosis or infection (principal); F10.288 Alcohol dependence with other alcohol-induced disorder; F10.239 Alcohol dependence with withdrawal, unspecified; K92.1 Melena; K92.0 Hematemesis; I10 Essential (primary) hypertension; Z91.14 Patient's other noncompliance with medication regimen; K21.9 Gastro-esophageal reflux disease without esophagitis; K31.9 Disease of stomach and duodenum, unspecified; K31.89 Other diseases of stomach and duodenum
CPT/HCPCS: 36415; 36416; 71045; 74177; 80053; 80307; 83690; 83735; 83880; 84443; 84484; 85025; 93005; 96361; 96365; 96372; 96375; C9113; J1885; J2001; J2060; J2270; J2405; J2704; J3010; J3411; J3475; J3480; J3490; Q9966